=== PATIENT | male | born 1995 | race Caucasian/White ===

== ENCOUNTER 2023-10-20 16:12 | Emergency (ER) | payer OTHER, SELFPAY ==
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
[2023-10-20 16:45] VITALS: BP 128/95; PULSE 64; RESP 16; TEMP 36.4; O2SAT 100; BMI 27.9
--- NOTE | 2023-10-20 18:33 | PC.NURSE ---
thumb splint applied by tech
[2023-10-20 18:34] VITALS: BP 124/86; PULSE 62; RESP 16; TEMP 36.7; O2SAT 99
== END 2023-10-20 18:36 | disposition home or self-care (01) ==
PROVIDERS: Emergency Provider Emergency Medicine
DX: M79.641 Pain in right hand (principal); M25.531 Pain in right wrist
CPT/HCPCS: 29125; 73110; 73130; 99282; 99283